=== PATIENT | female | born 1980 | race Caucasian/White ===

== ENCOUNTER 2018-07-18 08:10 | Inpatient (IN) | payer MEDICAID ==
[~2018-07-18] VITALS: Ht 152.4 cm; Wt 54.0 kg
[2018-07-18 09:54] LABS: BASOPHILS % (AUTO) 0.9 % (0.0-2.0); HEMATOCRIT 39.2 % (36-46); HEMOGLOBIN 12.9 g/dL (12.0-16.0); LYMPHOCYTES # (AUTO) 1.6 K/uL (1.0-4.8); LYMPHOCYTES % (AUTO) 23.3 % (22.0-44.0); MEAN CORPUSCULAR HGB CONC 32.8 G/dL (31.0-37.0); MEAN CORPUSCULAR VOLUME 88 fL (80-100); MONOCYTES # (AUTO) 0.5 K/uL (0.1-1.0); MONOCYTES % (AUTO) 6.9 % (2.0-9.0); NEUTROPHILS # (AUTO) 4.6 K/uL (1.8-7.7); NEUTROPHILS % (AUTO) 66.9 % (40.0-70.0); PLATELET COUNT (AUTO) 278 K/uL (150-450); RED BLOOD CELL COUNT(AUTO) 4.44 MIL/uL (4.00-5.20); RED CELL DISTRIBUTION WIDTH 14.4 % (11.5-14.5)
[2018-07-18 10:09] LABS: ANION GAP 6 mmol/L (8-16); CARBON DIOXIDE 28 mmol/L (22-29); CHLORIDE 107 mmol/L (98-107); CREATININE 0.67 mg/dL (0.60-1.30); GLOMERULAR FILTR. RATE CALC > 60 mL/min (>60); GLUCOSE,RANDOM 90 mg/dL (70-110); POTASSIUM 4.2 mmol/L (3.5-5.1); SODIUM SERUM 141 mmol/L (136-145); UREA NITROGEN, BLOOD 19 mg/dL (7-18)
[2018-07-18 10:21] LABS: ALANINE AMINOTRANSFERASE 40 U/L (12-78); ALBUMIN 3.3 g/dL (3.4-5.0); ALKALINE PHOSPHATASE 60 U/L (46-116); ASPARTATE AMINOTRANSFERASE 22 U/L (15-37); BILIRUBIN,TOTAL 0.2 mg/dL (0.1-1.0); HCG,QUANTITATIVE 2 mIU/mL (0-6); TOTAL PROTEIN, SERUM 6.9 g/dL (6.4-8.2)
[2018-07-18] MEDS ORDERED: ACETAMINOPHEN 325 MG TABLET PO PRN (10:30)
[2018-07-18] MEDS ORDERED: HALOPERIDOL 5 MG TABLET PO PRN (10:30)
[2018-07-18] MEDS ORDERED: IBUPROFEN 400 MG TABLET PO PRN (10:30)
[2018-07-18] MEDS ORDERED: ZOLPIDEM TARTRATE 10 MG TABLET PO PRN (10:30)
[2018-07-18 18:00] VITALS: BP 120/64
[2018-07-18] MEDS ORDERED: NICOTINE 14 MG/24 HOUR PATCH TD PRN (18:15)
[2018-07-18] MEDS ORDERED: MAGNESIUM HYDROXIDE SUSPENSION 30 ML UDCUP PO PRN (18:15)
[2018-07-18] MEDS ORDERED: LOPERAMIDE HCL 2 MG CAPSULE PO PRN (18:15)
[2018-07-18] MEDS ORDERED: GuaiFENesin/D-METHORPHAN [SUGAR-FREE] 200-20MG/10 ML SYRUP UDCUP PO PRN (18:15)
[2018-07-18] MEDS ORDERED: MAG HYDROX/AL HYDROX/SIMETH ES 30 ML SUSPENSION UDCUP PO PRN (18:15)
[2018-07-18] MEDS ORDERED: ONDANSETRON HCL 4 MG TABLET PO PRN (18:15)
[2018-07-18] MEDS ORDERED: CloNIDine HCL 0.1 MG TABLET PO PRN (18:15)
[2018-07-18] MEDS ORDERED: ALBUTEROL SULFATE HFA 90 MCG/PUFF 8 GM INHALER IH PRN (18:15)
[2018-07-18] MEDS ORDERED: PETROLATUM,WHITE 28 GM JELLY TP PRN (18:15)
[2018-07-18] MEDS ORDERED: DOCUSATE SODIUM 100 MG CAPSULE PO PRN (18:15)
[2018-07-19 02:20] VITALS: BP 111/74
[2018-07-19 08:49] LABS: BASOPHILS % (AUTO) 0.7 % (0.0-2.0); EOSINOPHILS % (AUTO) 2.8 % (1.0-6.0); HEMATOCRIT 36.1 % (36-46); HEMOGLOBIN 12.1 g/dL (12.0-16.0); LYMPHOCYTES # (AUTO) 1.4 K/uL (1.0-4.8); LYMPHOCYTES % (AUTO) 23.6 % (22.0-44.0); MEAN CORPUSCULAR HEMOGLOBIN 29.3 pg (26.0-34.0); MEAN CORPUSCULAR HGB CONC 33.6 G/dL (31.0-37.0); MEAN CORPUSCULAR VOLUME 87 fL (80-100); MONOCYTES # (AUTO) 0.5 K/uL (0.1-1.0); MONOCYTES % (AUTO) 7.5 % (2.0-9.0); NEUTROPHILS % (AUTO) 65.4 % (40.0-70.0); PLATELET COUNT (AUTO) 282 K/uL (150-450); RED BLOOD CELL COUNT(AUTO) 4.14 MIL/uL (4.00-5.20); RED CELL DISTRIBUTION WIDTH 14.1 % (11.5-14.5)
[2018-07-19 09:21] LABS: CHOL/HDL RATIO 3.6 (3.9-5.7)
[2018-07-19] MEDS: LORazepam 2 MG TABLET PO PRN (09:21)
[2018-07-19 09:26] LABS: ALANINE AMINOTRANSFERASE 35 U/L (12-78); ALBUMIN 3.1 g/dL (3.4-5.0); ALKALINE PHOSPHATASE 56 U/L (46-116); ANION GAP 5 mmol/L (8-16); ASPARTATE AMINOTRANSFERASE 23 U/L (15-37); BILIRUBIN,TOTAL 0.1 mg/dL (0.1-1.0); CALCIUM, TOTAL 8.7 mg/dL (8.8-10.5); CARBON DIOXIDE 28 mmol/L (22-29); CHLORIDE 106 mmol/L (98-107); CREATININE 0.59 mg/dL (0.60-1.30); GLOMERULAR FILTR. RATE CALC > 60 mL/min (>60); GLUCOSE,RANDOM 97 mg/dL (70-110); POTASSIUM 4.1 mmol/L (3.5-5.1); SODIUM SERUM 139 mmol/L (136-145); THYROID STIMULATING HORMONE 1.07 uIU/mL (0.36-3.74); TOTAL PROTEIN, SERUM 6.4 g/dL (6.4-8.2); UREA NITROGEN, BLOOD 19 mg/dL (7-18)
[2018-07-19] MEDS: HALOPERIDOL 10 MG TABLET PO SCH (16:18)
[2018-07-19 16:29] VITALS: BP 115/68
[2018-07-20 06:08] VITALS: BP 101/61
[2018-07-20 08:26] VITALS: BP 101/58
[2018-07-20] MEDS: HALOPERIDOL 10 MG TABLET PO SCH ×2 (08:28→16:42)
[2018-07-20 09:01] LABS: AMPHET/METH SCREEN,URINE POSITIVE (NEGATIVE); BARBITURATE SCREEN, URINE NEGATIVE (NEGATIVE); BENZODIAZEPINES SCREEN,URINE NEGATIVE (NEGATIVE); CANNABINOID SCREEN,URINE POSITIVE (NEGATIVE); COCAINE SCREEN,URINE NEGATIVE (NEGATIVE); METHADONE SCREEN, URINE NEGATIVE (NEGATIVE); OPIATE SCREEN,URINE NEGATIVE (NEGATIVE)
[2018-07-20 09:03] LABS: PHENCYCLIDINE SCREEN,URINE NEGATIVE (NEGATIVE)
[2018-07-20 09:45] LABS: APPEARANCE,URINE CLEAR (CLEAR); BILIRUBIN,URINE NEGATIVE (NEGATIVE); GLUCOSE, URINE (UA) NEGATIVE (NEGATIVE); KETONES,URINE NEGATIVE (NEGATIVE); LEUKOCYTE ESTERASE ,URINE NEGATIVE (NEGATIVE); NITRATE,URINE NEGATIVE (NEGATIVE); PROTEIN,URINE NEGATIVE (NEGATIVE); UROBILINOGEN,URINE 0.2 mg/dL (<=1.0)
[2018-07-20 10:19] LABS: OCCULT BLOOD,URINE NEGATIVE (NEGATIVE)
[2018-07-20 10:20] LABS: BACTERIA,URINE None Seen /HPF (None Seen); RBC,URINE None Seen /HPF (0-2); SQUAMOUS EPITHELIAL CELL,UR Rare /LPF (None Seen); WBC,URINE None Seen /HPF (0-5)
[2018-07-20 16:10] VITALS: BP 93/54
[2018-07-21 06:10] VITALS: BP 119/69
[2018-07-21 08:29] VITALS: BP 113/61
[2018-07-21] MEDS: HALOPERIDOL 10 MG TABLET PO SCH ×2 (09:36→17:30)
[2018-07-21] MEDS: LORazepam 2 MG TABLET PO PRN (10:00)
[2018-07-21] MEDS: SERTRALINE HCL 100 MG TABLET PO SCH (12:44)
[2018-07-22 06:24] VITALS: BP 105/63
[2018-07-22 08:19] VITALS: BP 98/67
[2018-07-22] MEDS: HALOPERIDOL 10 MG TABLET PO SCH ×2 (08:24→16:35)
[2018-07-22] MEDS: SERTRALINE HCL 100 MG TABLET PO SCH (08:24)
[2018-07-22 16:12] VITALS: BP 118/61
[2018-07-22] MEDS: LORazepam 2 MG TABLET PO PRN (16:35)
[2018-07-23 06:24] VITALS: BP 111/64
[2018-07-23] MEDS: SERTRALINE HCL 100 MG TABLET PO SCH (08:04)
[2018-07-23] MEDS: HALOPERIDOL 10 MG TABLET PO SCH ×2 (08:04→16:26)
[2018-07-23 08:23] VITALS: BP 115/63
[2018-07-23] MEDS: LORazepam 2 MG TABLET PO PRN ×2 (10:25→16:26)
[2018-07-23 16:14] VITALS: BP_SYST 102; BP_SYST 103; BP_DIAS 62; BP_DIAS 64
[2018-07-24 06:10] VITALS: BP 108/60
[2018-07-24 08:16] VITALS: BP 110/60
[2018-07-24] MEDS: HALOPERIDOL 10 MG TABLET PO SCH ×2 (08:19→16:29)
[2018-07-24] MEDS: SERTRALINE HCL 100 MG TABLET PO SCH (08:19)
[2018-07-24] MEDS: LORazepam 2 MG TABLET PO PRN (08:36)
[2018-07-24 16:18] VITALS: BP 95/55
[2018-07-25 08:24] VITALS: BP 93/52
[2018-07-25] MEDS: SERTRALINE HCL 100 MG TABLET PO SCH (09:21)
[2018-07-25] MEDS: HALOPERIDOL 10 MG TABLET PO SCH ×2 (09:21→17:03)
[2018-07-25 16:44] VITALS: BP 107/61
[2018-07-26 06:27] VITALS: BP 109/62
[2018-07-26] MEDS: LORazepam 2 MG TABLET PO PRN (06:51)
[2018-07-26] MEDS: SERTRALINE HCL 100 MG TABLET PO SCH (09:01)
[2018-07-26] MEDS: HALOPERIDOL 10 MG TABLET PO SCH ×2 (09:01→16:41)
[2018-07-26 10:09] VITALS: BP 103/68
[2018-07-26 15:00] VITALS: BP 108/68
[2018-07-26 16:12] VITALS: BP 113/67
[2018-07-27 04:12] VITALS: BP 100/62
[2018-07-27 08:28] VITALS: BP 106/60
[2018-07-27] MEDS: SERTRALINE HCL 100 MG TABLET PO SCH (08:58)
[2018-07-27] MEDS: HALOPERIDOL 10 MG TABLET PO SCH ×2 (08:58→16:20)
[2018-07-27] MEDS ORDERED: SERTRALINE HCL 100 MG TABLET PO ONE (10:45)
[2018-07-27] MEDS: LORazepam 2 MG TABLET PO PRN (14:05)
[2018-07-27 16:19] VITALS: BP 94/54
[2018-07-28 00:02] VITALS: BP 116/63
[2018-07-28 00:15] VITALS: BP 118/73
[2018-07-28 00:37] VITALS: BP 116/63
[2018-07-28 00:39] LABS: GLUCOMETER DEV NAME(LOC) BV3S.; GLUCOSE,POINT OF CARE 90 MG/DL (70-110)
[2018-07-28] MEDS: SERTRALINE HCL 100 MG TABLET PO SCH (09:00)
[2018-07-28] MEDS: HALOPERIDOL 10 MG TABLET PO SCH ×2 (09:00→16:47)
[2018-07-28 16:14] VITALS: BP 114/60
[2018-07-28] MEDS: LORazepam 2 MG TABLET PO PRN (16:48)
[2018-07-29 06:23] VITALS: BP 139/58
[2018-07-29] MEDS: SERTRALINE HCL 100 MG TABLET PO SCH (08:07)
[2018-07-29] MEDS: HALOPERIDOL 10 MG TABLET PO SCH ×2 (08:07→17:16)
[2018-07-29 08:19] VITALS: BP 121/69
[2018-07-29 16:29] VITALS: BP 94/63
[2018-07-30 00:53] VITALS: BP 104/63
[2018-07-30] MEDS: HALOPERIDOL 10 MG TABLET PO SCH ×2 (08:00→17:07)
[2018-07-30] MEDS: SERTRALINE HCL 100 MG TABLET PO SCH (08:00)
[2018-07-30 08:20] VITALS: BP 102/60
[2018-07-30 16:01] VITALS: BP 108/53
[2018-07-31 02:23] VITALS: BP 106/54
[2018-07-31] MEDS: HALOPERIDOL 10 MG TABLET PO SCH ×2 (08:12→16:16)
[2018-07-31 08:13] VITALS: BP 102/53
[2018-07-31] MEDS: SERTRALINE HCL 100 MG TABLET PO SCH (08:13)
[2018-07-31 16:02] VITALS: BP 99/60
[2018-08-01 06:37] VITALS: BP 99/61
[2018-08-01 08:04] VITALS: BP 100/59
[2018-08-01] MEDS: HALOPERIDOL 10 MG TABLET PO SCH ×2 (08:31→16:04)
[2018-08-01] MEDS: SERTRALINE HCL 100 MG TABLET PO SCH (08:32)
[2018-08-02 06:42] VITALS: BP 119/76
[2018-08-02 08:09] VITALS: BP 112/43
[2018-08-02] MEDS: SERTRALINE HCL 100 MG TABLET PO SCH (08:22)
[2018-08-02] MEDS: HALOPERIDOL 10 MG TABLET PO SCH ×2 (08:22→16:16)
[2018-08-02] MEDS: LORazepam 2 MG TABLET PO PRN (08:59)
[2018-08-02 19:45] VITALS: BP 95/64
[2018-08-03 08:13] VITALS: BP 100/57
[2018-08-03] MEDS: SERTRALINE HCL 100 MG TABLET PO SCH (08:30)
[2018-08-03] MEDS: HALOPERIDOL 10 MG TABLET PO SCH ×2 (08:30→16:26)
[2018-08-03 16:09] VITALS: BP 108/68
[2018-08-04 00:22] VITALS: BP 99/65
[2018-08-04 08:04] VITALS: BP 100/68
[2018-08-04] MEDS: HALOPERIDOL 10 MG TABLET PO SCH ×2 (08:17→16:15)
[2018-08-04] MEDS: SERTRALINE HCL 100 MG TABLET PO SCH (08:17)
[2018-08-04 16:24] VITALS: BP 102/63
[2018-08-05 06:15] VITALS: BP 120/50
[2018-08-05 08:24] VITALS: BP 98/66
[2018-08-05] MEDS: HALOPERIDOL 10 MG TABLET PO SCH ×2 (09:07→16:03)
[2018-08-05] MEDS: SERTRALINE HCL 100 MG TABLET PO SCH (09:27)
[2018-08-05 11:24] VITALS: BP 112/80
[2018-08-05] MEDS: LORazepam 2 MG TABLET PO PRN (11:32)
[2018-08-05 16:28] VITALS: BP_SYST 104; BP_DIAS 57; BP_DIAS 84
[2018-08-06 05:00] VITALS: BP 100/58
[2018-08-06 08:06] VITALS: BP 98/57
[2018-08-06] MEDS: SERTRALINE HCL 100 MG TABLET PO SCH (09:15)
[2018-08-06] MEDS: HALOPERIDOL 10 MG TABLET PO SCH ×2 (09:16→16:25)
[2018-08-06 16:17] VITALS: BP 108/58
[2018-08-07 06:07] VITALS: BP 104/62
[2018-08-07 08:06] VITALS: BP 97/60
[2018-08-07] MEDS: SERTRALINE HCL 100 MG TABLET PO SCH (08:40)
[2018-08-07] MEDS: HALOPERIDOL 10 MG TABLET PO SCH ×2 (08:41→16:44)
[2018-08-07 16:09] VITALS: BP 102/60
[2018-08-08 05:07] VITALS: BP 95/55
[2018-08-08 08:03] VITALS: BP 110/59
[2018-08-08] MEDS: HALOPERIDOL 10 MG TABLET PO SCH ×2 (08:15→16:10)
[2018-08-08] MEDS: LORazepam 2 MG TABLET PO PRN (08:15)
[2018-08-08] MEDS: SERTRALINE HCL 100 MG TABLET PO SCH (08:15)
[2018-08-08] MEDS: BACITRACIN 28.4 GM OINTMENT TP SCH ×2 (10:46→16:10)
[2018-08-08 16:14] VITALS: BP 100/60
[2018-08-09 06:40] VITALS: BP 110/63
[2018-08-09 08:04] VITALS: BP 100/56
[2018-08-09] MEDS: SERTRALINE HCL 100 MG TABLET PO SCH (08:14)
[2018-08-09] MEDS: BACITRACIN 28.4 GM OINTMENT TP SCH (08:14)
[2018-08-09] MEDS: HALOPERIDOL 10 MG TABLET PO SCH (08:14)
[2018-08-09] MEDS ORDERED: BACI30OI6 TP (09:03)
[2018-08-09] MEDS ORDERED: SERT100T12 PO (09:18)
[2018-08-09] MEDS ORDERED: HALO10 PO (09:18)
== END 2018-08-09 13:25 | disposition home or self-care (01) | DRG 750 ==
LOC: EMS 08:10 → B3A 16:16
PROVIDERS: ADMIT Psychiatry & Neurology Psychiatry; ATTEND Psychiatry & Neurology Psychiatry
DX: F20.0 Paranoid schizophrenia (principal); E88.09 Other disorders of plasma-protein metabolism, not elsewhere classified; F17.200 Nicotine dependence, unspecified, uncomplicated; F15.10 Other stimulant abuse, uncomplicated; F12.10 Cannabis abuse, uncomplicated; Z71.51 Drug abuse counseling and surveillance of drug abuser; Z59.0 Homelessness; Z71.6 Tobacco abuse counseling; Z79.899 Other long term (current) drug therapy
CPT/HCPCS: 83036; 84443; G0480